=== PATIENT | male | born 1940 | race African-American/Black ===

== ENCOUNTER 2016-12-23 11:33 | Outpatient (CLI) | payer MEDICARE, MEDICAID ==
[2016-12-23 12:37] LABS: #Basophils 0.1 thou/uL (0.0-0.2); #Eosinphils 0.1 thou/uL (0.0-0.7); #Lymphocytes 2.4 thou/uL (1.20-3.40); #Monocytes 0.7 thou/uL (0.11-0.59); #Neutrophils 3.7 thou/uL (1.40-6.50); %Basophils 1.3 % (0.0-1.0); %Eosinophils 1.5 % (0.0-10.0); %Lymphocytes 33.9 % (21.0-51.0); %Monocytes 10.1 % (0.0-10.0); Hematocrit 40.8 % (42.0-52.0); Mean Platelet Volume 6.3 fL (7.4-10.4); Red Blood Cell (RBC) Count 4.21 mill/uL (4.70-6.10)
[2016-12-23 12:51] LABS: Hemoglobin A1c 5.9 % (4.0-6.0)
[2016-12-23 12:53] LABS: ALT (SGPT) 40 U/L (0-55); AST (SGOT) 25 U/L (5-34); Alkaline Phosphatase 70 U/L (40-150); Anion Gap 16 mmol/L (10-20); BUN (Urea Nitrogen) 11 mg/dL (8.4-25.7); Bilirubin, Total 0.6 mg/dL (0.2-1.2); Calc. Creatinine Clearance 0 mL/min (70-130); Calcium 9.4 mg/dL (7.8-10.44); Carbon Dioxide 23 mmol/L (23-31); Chloride 106 mmol/L (98-107); Estimated GFR-MDRD 79; Globulin 3.3 g/dL (2.4-3.5); LDL Cholesterol, Calculated 83 mg/dL; Protein, Total 7.4 g/dL (5.8-8.1)
== END 2016-12-23 11:34 ==
LOC: NAV LAB 11:33
PROVIDERS: ATTEND Family Medicine
DX: E78.5 Hyperlipidemia, unspecified (principal); E11.65 Type 2 diabetes mellitus with hyperglycemia; D75.89 Other specified diseases of blood and blood-forming organs
CPT/HCPCS: 80053; 80061; 83036; 84443; 85025

== ENCOUNTER 2023-06-06 10:11 | Emergency (ER) | payer OTHER, MEDICAID ==
[2023-06-06 11:50] LABS: #Monocytes 0.5 thou/uL (0.11-0.59); #Neutrophils 3.7 thou/uL (1.40-6.50); %Basophils 0.5 % (0.0-1.0); %Eosinophils 0.9 % (0.0-10.0); %Lymphocytes 18.4 % (21.0-51.0); %Monocytes 9.4 % (0.0-10.0); %Neutrophils 70.7 % (42.0-75.0); Hematocrit 31.4 % (42.0-52.0); Hemoglobin 9.6 g/dL (14.0-18.0); Mean Corpuscular HGB CONC 30.7 g/dL (32.0-36.0); Mean Corpuscular Hemoglobin 31.3 pg (27.0-31.0); Mean Platelet Volume 5.3 fL (7.4-10.4); Platelet Count 329 10x3/uL (130-400); RBC Distribution Width 14.2 % (11.5-14.5); Red Blood Cell (RBC) Count 3.07 mill/uL (4.70-6.10); White Blood Cell (WBC) Count 5.2 10x3/uL (4.8-10.8)
[2023-06-06 11:56] LABS: Prothrombin Time 13.3 sec (12.0-14.7)
[2023-06-06 11:57] LABS: Anion Gap 14 mmol/L (10-20); BUN (Urea Nitrogen) 17 mg/dL (8.4-25.7); Calc. Creatinine Clearance 0 mL/min (70-130); Calcium 9.4 mg/dL (7.8-10.44); Carbon Dioxide 23 mmol/L (23-31); Chloride 104 mmol/L (98-107); Estimated GFR 49; Glucose 124 mg/dL (83-110); PTT 29.5 sec (22.9-36.1); Potassium 3.9 mmol/L (3.5-5.1); Sodium 137 mmol/L (136-145)
[2023-06-06 11:59] LABS: D-Dimer Test 0.88 *mcg/mL (0.27-0.43)
[2023-06-06 12:03] LABS: Troponin I Less than 0.010 ng/mL (< 0.028)
== END 2023-06-06 12:49 | disposition short-term general hospital (02) ==
LOC: NAV ERS 10:11
DX: R60.0 Localized edema (principal); R79.1 Abnormal coagulation profile; I12.9 Hypertensive chronic kidney disease with stage 1 through stage 4 chronic kidney disease, or unspecified chronic kidney disease; E11.22 Type 2 diabetes mellitus with diabetic chronic kidney disease; N18.9 Chronic kidney disease, unspecified; F17.210 Nicotine dependence, cigarettes, uncomplicated; E78.5 Hyperlipidemia, unspecified; Z79.82 Long term (current) use of aspirin; Z79.84 Long term (current) use of oral hypoglycemic drugs; Z79.02 Long term (current) use of antithrombotics/antiplatelets
CPT/HCPCS: 36415; 80048; 83880; 84484; 85025; 85379; 85610; 85730; 99284